=== PATIENT | male | born 1940 | race Caucasian/White ===

== ENCOUNTER → 2019-05-06 | Outpatient (CLI) | payer MEDICARE, OTHER ==
[~2019-05-06] MED LIST: AMOX250 PO; ASPI325 PO; ASPI81CH PO; CLOP75 PO; CYCL0.05OP BOTHEYES; EPIN.3I IM; ERYSTE250 PO; FURO20 PO; LISI5 PO; LOVA40 PO; METF500 PO; METO100ER PO; OMEG1CAP30 PO; STATIN; TAMS.4ER PO; TERAZOSIN PO; ZOLP5 PO
[2019-05-08 14:01] LABS: Stool Occult Blood Guaiac 1 Neg (Neg)
[2019-05-08 14:02] LABS: Stool Occult Blood Guaiac 2 Neg (Neg)
[2019-05-08 14:03] LABS: Stool Occult Blood Guaiac 3 Neg (Neg)
== END | disposition home or self-care (01) ==
LOC: LAB 19:00 → LAB SHORT 19:00
PROVIDERS: Internal Medicine
DX: E03.9 Hypothyroidism, unspecified (principal); E11.8 Type 2 diabetes mellitus with unspecified complications; D50.9 Iron deficiency anemia, unspecified; E55.9 Vitamin D deficiency, unspecified
CPT/HCPCS: 82272